=== PATIENT | female | born 1965 | race Two or more races ===

== ENCOUNTER 2021-09-20 11:57 | Outpatient (CLI) | payer OTHER ==
[~2021-09-20 11:57] MED LIST: ADVAIR 2501 DISK W/1; PREDNISONE2.5 MG
== END 2021-09-20 12:03 | disposition home or self-care (01) ==
LOC: RAD 11:57
PROVIDERS: ATTEND Internal Medicine Pulmonary Disease
DX: J44.1 Chronic obstructive pulmonary disease with (acute) exacerbation (principal); J44.9 Chronic obstructive pulmonary disease, unspecified

== ENCOUNTER 2023-11-30 14:15 | Emergency (ER) | payer OTHER ==
[~2023-11-30] VITALS: Ht 144.8 cm; Wt 83.5 kg
[2023-11-30] MEDS ORDERED: TRAMADOL HCL50 MG PO (15:08)
[2023-11-30] MEDS ORDERED: SYNTHROID50 MCG PO (15:08)
[2023-11-30] MEDS ORDERED: COZAAR25 MG PO (15:08)
[2023-11-30] MEDS ORDERED: METHYLPREDNISOLONE SOD SUCC 125 MG VIAL ONE (16:29)
[2023-11-30] MEDS ORDERED: GUAIFENESIN/DEXTROMETHORPHAN 10ML BLIST.PACK PO ONE ×2 (16:30→16:31)
[2023-11-30] MEDS ORDERED: METHYLPREDNISOLONE SOD SUCC 125 MG VIAL IV ONE (16:30)
[2023-11-30] MEDS ORDERED: IPRATROPIUM/ALBUTEROL SULFATE 3 ML AMPUL.NEB IH SCH (16:30)
[2023-11-30 16:41] LABS: HEMOGLOBIN 14.2 g/dL (12.0-15.00); MEAN CELL VOLUME 87.1 fL (80.00-100.00); MEAN CORPUSCULAR HEMOGLOBIN 28.8 pg (27.00-32.0); PLATELET COUNT 242 K/uL (150-450); RED BLOOD COUNT 4.94 M/uL (4.00-6.00); RED CELL DISTRIBUTION WIDTH 14.4 % (11.5-14.5)
[2023-11-30] MEDS ORDERED: IPRATROPIUM/ALBUTEROL SULFATE 3 ML AMPUL.NEB IH ONE (18:08)
[2023-11-30 18:38] LABS: ABG PO2 69.9 mmHg (80-100); ABG pCO2 45.8 mmHg (35-45); BASE EXCESS 3.8 mmol/l; SaO2 94.3 %; Tco2 30.4 mmol/l; allen test SATISFACTORY; o2 21 %; puncture site RADIAL LEFT
[2023-11-30] MEDS ORDERED: MEDROLPACK PO (19:03)
[2023-11-30] MEDS ORDERED: ZITHROMAX500 MG PO (19:03)
[2023-11-30] MEDS ORDERED: TUSNEL LIQUID178 ML PO (19:03)
[2023-11-30] MEDS ORDERED: ALBUTEROL2.5 MG/3 M IH (19:05)
== END 2023-11-30 19:32 ==
LOC: ER 14:16
PROVIDERS: Nurse Practitioner Family
DX: J00 Acute nasopharyngitis [common cold] (principal); J45.909 Unspecified asthma, uncomplicated; E03.8 Other specified hypothyroidism
CPT/HCPCS: 36415; 71046; 82803; 96365; 99283; J3490

== ENCOUNTER 2024-04-29 10:26 | Outpatient (CLI) | payer OTHER ==
[~2024-04-29 10:26] MED LIST changes: +ALBUTEROL2.5 MG/3 M IH; +COZAAR25 MG PO; +MEDROLPACK PO; +SYNTHROID50 MCG PO; +TRAMADOL HCL50 MG PO; +TUSNEL LIQUID178 ML PO; +ZITHROMAX500 MG PO
== END 2024-04-29 10:27 | disposition home or self-care (01) ==
LOC: NUCLEAR 10:26
DX: R00.2 Palpitations (principal)

== ENCOUNTER 2024-04-30 11:20 | Outpatient (CLI) | payer OTHER | END 2024-04-30 11:25 | disposition home or self-care (01) | LOC: MAMO-SONO 11:20 | PROVIDERS: ATTEND General Practice | DX: Z12.31 Encounter for screening mammogram for malignant neoplasm of breast (principal); N64.4 Mastodynia ==

== ENCOUNTER 2024-05-26 07:40 | Outpatient (CLI) | payer OTHER | END 2024-05-26 07:42 | disposition home or self-care (01) | LOC: NUCLEAR 07:40 | DX: R00.2 Palpitations (principal) ==